=== PATIENT | male | born 1985 | race Caucasian/White ===

== ENCOUNTER 2019-08-18 23:50 | Emergency (ER) | payer SELFPAY ==
[2019-08-19] MEDS ORDERED: Ketorolac Tromethamine 60 MG/2 ML VIAL ONE (00:02)
== END 2019-08-19 00:22 | disposition home or self-care (01) ==
LOC: ERS 23:50
DX: K03.81 Cracked tooth (principal); K02.9 Dental caries, unspecified; F17.220 Nicotine dependence, chewing tobacco, uncomplicated
CPT/HCPCS: 96372; 99282; J1885

== ENCOUNTER 2023-02-28 09:28 | Outpatient (CLI) | payer BC | END 2023-02-28 09:29 | disposition home or self-care (01) | LOC: RAD-FRANK 09:28 | PROVIDERS: ATTEND Nurse Practitioner Family | DX: M25.551 Pain in right hip (principal) ==